=== PATIENT | male | born 1985 | race Caucasian/White ===

== ENCOUNTER 2020-07-18 16:37 | Emergency (ER) | payer BC, SELFPAY ==
[2020-07-18 16:50] VITALS: BP 137/88; PULSE 98; RESP 18; TEMP 36.9; O2SAT 98; BMI 22.9
--- NOTE | 2020-07-18 16:59 | HMH.EDUTC ---
[facility] [place] Clinical Impression: Viral syndrome Disposition: Home, Self-Care Condition on Discharge: Good Instructions: DI for Viral Syndrome, DI for Fever (Symptom) -- Adult, Preventing the Spread of Coronavirus Discharge Instructions Additional Instructions: *Monitor Temp, Over the counter Motrin or Tylenol as directed/as needed Tylenol every 4 hours and Motrin every 6 hours (as long as your family doctor has told you that you can take it) for fever or pain. and straight to ER if unable to lower temp less than 101.0 after medication given *Warm salt water gargles may help to soothe the throat *Throat Lozenges *Warm fluids like tea with honey may help to soothe the throat *Sleep elevated *Humidifier/Vaporizer *Flonase 2 sprays in each nostril daily but be aware that it may take 2-3 days before you notice improvement *Bromfed may cause drowsiness. Know how it effects you (your child) before driving, caring for small child, or sending your child to school. Not other antihistamines/allergy medications while taking bromfed Follow up IMMEDIATELY for new or worsening symptoms or no Noticeable improvement over the next 48-72 hours. 911 for difficulty breathing or swallowing You was tested for today for COVID19 your test result should be back in the next 24-48 hours, you may call to the [facility] later today or tomorrow to see if your test results are back and the result [phone] [facility] hours are 9am-9pm You was given a handout with instructions for Self Quarantine and Self isolation for while you wait on test results and what to do if they are positive If you are positive the Health Dept will be contacting you also Prescriptions: Brompheniramine/Pseudoephed/Dm [Bromfed Dm Cough Syrup] 5 - 10 ml PO Q46H PRN #150 ml PRN Reason: Cough Transmission Status: Received by [id number] Fluticasone Propionate [Flonase 50mcg nasal spray 16gm] 1 spr NS DAILY #1 bottle Transmission Status: Received by [id number] Referrals: PCP,No [Primary Care Provider] - As needed Forms: Work/School Release Time of Disposition: 17:14 Medical Decision Making - Parish Inquiry Pt receiving controlled substance: No Parish was queried for this patient: No Vital Signs: 07/18/20 16:50 07/18/20 17:19 Temperature 98.4 F 98.4 F Temperature Source Oral Oral Pulse Rate 98 H Pulse Rate [Radial] 98 H Respiratory Rate 18 18 Blood Pressure 137/88 Blood Pressure [Right Arm] 137/88 Blood Pressure Mean [Right Arm] 104 Blood Pressure Source Automatic Cuff Blood Pressure Source [Right Arm] Automatic Cuff Blood Pressure Position Sitting Blood Pressure Position [Right Arm] Sitting 02 Sat by Pulse Oximetry 98 Oxygen Delivery Method Room Air Room Air - Lab Data Lab Results 07/18/20 17:02: Influenza Type A Ag Negative, Influenza Type B Ag Negative Orders (Tests/Meds): ORDERS Category Date Time Status Covid-19 Nasal PCR ([facility]) Routine Lab 07/18/20 16:55 Received [facility] [place] - General Stated complaint: Wnts Covid test Time Seen by Provider: 07/18/20 16:59 Mode of Arrival: Ambulatory Source of Information: Patient Limitations: No Limitations Description of Symptoms (Recalled from Triage Doc. 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
[2020-07-18 17:09] LABS: UTC Influenza A Antigen Negative (Negative)
[2020-07-18 17:10] LABS: UTC Influenza B Antigen Negative (Negative)
[2020-07-18 17:19] VITALS: BP 137/88; PULSE 98; RESP 18; TEMP 36.9; O2SAT 98
--- NOTE | 2020-07-19 04:40 | PC.NURSE ---
Positive COVID results reported.
== END 2020-07-18 17:20 | disposition home or self-care (01) ==
PROVIDERS: Emergency Provider Nurse Practitioner
DX: U07.1 COVID-19 (principal); Z88.0 Allergy status to penicillin
CPT/HCPCS: 87804; 99201; U0003

== ENCOUNTER → 2020-10-19 12:38 | Outpatient (CLI) | payer BC, SELFPAY ==
[2020-10-19 13:34] LABS: Creatinine,Urine Random 50 mg/dL (Not Estab.)
== END ==
PROVIDERS: Visit Provider Internal Medicine Nephrology
DX: Z52.4 Kidney donor (principal)
CPT/HCPCS: 82570; 84155

== ENCOUNTER 2021-07-18 09:46 | Emergency (ER) | payer BC, SELFPAY ==
[2021-07-18 10:00] VITALS: BMI 23.6
--- NOTE | 2021-07-18 10:00 | XR_ITS ---
PROCEDURE: XR HAND RT 2V CLINICAL INDICATION: dog bite COMPARISON: No exams were available for comparison FINDINGS: Suspect old fracture of the distal aspect of the 5th metacarpal with mild angulation deformity and cortical thickening. There is a small radiopaque foreign body measuring 4 x 1 mm within the subcutaneous tissues between the 1st and 2nd fingers distally. There is a faint linear density at the tip the distal phalanx of the thumb small bone island involves the distal aspect of the ulna. The joint spaces are well-preserved. No significant degenerative/arthritic changes. No erosive changes evident. Other findings:None. IMPRESSION: Radiopaque foreign body. Faint linear density at the tuft of the distal phalanx of the thumb which could be due to small avulsion injury. Please correlate as the patient's area of injury. Dictated by: Ben Valdivia MD 07/18/2021 12:32 Ben Valdivia MD in [place] 07/18/2021 12:32
[2021-07-18 10:01] VITALS: BP 134/91; PULSE 82; RESP 18; TEMP 36.8; O2SAT 100; BMI 23.6
--- NOTE | 2021-07-18 10:16 | HMH.EDUTC ---
[facility] [place] Disposition Clinical Impression: Open wound of right thumb due to dog bite Dog bite of left hand Qualifiers: Encounter type: initial encounter Qualified Code(s): S61.452A - Open bite of left hand, initial encounter Injury of nail bed of right thumb Qualifiers: Encounter type: initial encounter Qualified Code(s): S69.91XA - Unspecified injury of right wrist, hand and finger(s), initial encounter Disposition: Home, Self-Care Condition on Discharge: Good Instructions: DI for Nail Bed Injury, DI for Dog Bite Additional Instructions: Keep the wounds clean and dry. Follow up with your regular doctor. Take the antibiotics as directed and apply the topical antibiotics as directed. Make sure you stay in contact with the health department regarding the health of the dog. Watch the puncture wounds for signs of worsening infection, such as worsening redness, drainage, swelling, etc. GO TO THE ER FOR ANY WORSENING SYMPTOMS Prescriptions: Ibuprofen [Ibuprofen 600mg Tablet] 600 mg PO Q6HP PRN #30 tab PRN Reason: Mild Pain Transmission Status: Received by [facility] Mupirocin [Bactroban 2% Ointment 22gm tube] 1 applicatio TP TID 7 Days #1 gm Transmission Status: Received by [facility] clindamycin HCL [Cleocin HCl] 300 mg PO TID 10 Days #30 cap Transmission Status: Received by [facility] Doxycycline Monohydrate [Doxycycline [place] 100mg Tab] 100 mg PO Q12 10 Days #20 tab Transmission Status: Received by [facility] Referrals: Petra Smith [Primary Care Provider] - Dani Santos MD [Staff Physician] - Time of Disposition: 11:19 Medical Decision Making - Medical Records Medical records reviewed: No: I reviewed the patient's medical records. - Parish Inquiry Pt receiving controlled substance: No Vital Signs: 07/18/21 10:01 07/18/21 11:37 Temperature 98.2 F 98.2 F Temperature Source Oral Oral Pulse Rate 82 Pulse Rate [Left Radial] 82 Respiratory Rate 18 18 Blood Pressure 134/91 H Blood Pressure [Right Arm] 134/91 H Blood Pressure Mean [Right Arm] 105 Blood Pressure Source [Right Arm] Automatic Cuff Blood Pressure Position [Right Arm] Sitting 02 Sat by Pulse Oximetry 100 Oxygen Delivery Method Room Air - Radiology Data #1 Image(s): Hand Image Reviewed: Yes I reviewed the patient's radiology image, Yes I have reviewed radiologist's interpretation Preliminary Findings: Abnormal PROCEDURE: XR HAND RT 2V CLINICAL INDICATION: dog bite COMPARISON: No exams were available for comparison FINDINGS: Suspect old fracture of the distal aspect of the 5th metacarpal with mild angulation deformity and cortical thickening. There is a small radiopaque foreign body measuring 4 x 1 mm within the subcutaneous tissues between the 1st and 2nd fingers distally. There is a faint linear density at the tip the distal phalanx of the thumb small bone island involves the distal aspect of the ulna. The joint spaces are well-preserved. No significant degenerative/arthritic changes. No erosive changes evident. Other findings:None. IMPRESSION: Radiopaque foreign body. Faint linear density at the tuft of the distal phalanx of the thumb which could be due to small avulsion injury. Please correlate as the patient's area of injury. Dictated by: Ben Valdivia MD 07/18/2021 12:32 Ben Valdivia MD in [place] 07/18/2021 12:32 Medical Decision Narrative: The wounds were cleaned well. Paper work was sent to the health department. [facility] [place] HPI - General Stated complaint: [id number] dog bite right thumb Time Seen by Provider: 07/18/21 10:31 Mode of Arrival: Ambulatory Source of Information: Patient Limitations: No Limitations Description of Symptoms (Recalled from Triage Doc. by RN): pt to [facility] per pvt car. pt states he was bit by a dog this morning. pt c/o pain in his right thumb. pt states he is utd on his tetanus shot. AYE
[2021-07-18 11:37] VITALS: BP 134/91; PULSE 82; RESP 18; TEMP 36.8; O2SAT 100
== END 2021-07-18 11:39 | disposition home or self-care (01) ==
PROVIDERS: Emergency Provider Nurse Practitioner Family; PCP Family Medicine
DX: S61.452A Open bite of left hand, initial encounter (principal); S69.91XA Unspecified injury of right wrist, hand and finger(s), initial encounter; W54.0XXA Bitten by dog, initial encounter; Y92.019 Unspecified place in single-family (private) house as the place of occurrence of the external cause; Z88.0 Allergy status to penicillin; Z88.5 Allergy status to narcotic agent
CPT/HCPCS: 73120; 99202; G0463

== ENCOUNTER 2024-09-12 03:07 | Emergency (ER) | payer BC, SELFPAY ==
[2024-09-12 03:09] VITALS: BP 173/98; PULSE 78; RESP 16; TEMP 36.6; O2SAT 99; BMI 23.7
[2024-09-12 03:23] LABS: Microscopic, Urine URINE MICROSCOPIC (MICROSCOPIC)
[2024-09-12 03:25] LABS: Appearance,Urine CLEAR (Clear); Blood, Urine 3+ (Negative); Color,Urine YELLOW (Yellow); Glucose,Urine (UA) Negative (Negative); Ketones,Urine Negative (Negative); Leukocyte Esterase,Urine 2+ (Negative); Nitrate,Urine POSITIVE (Negative); Protein,Urine 2+ (Negative); Specific Gravity, Urine 1.025 (1.005-1.030); Urobilinogen,Urine 0.2 EU/dl (0.2)
--- NOTE | 2024-09-12 03:27 | PC.NURSE ---
bladder post void scan 3ml
[2024-09-12 03:34] LABS: Basophils # 0.1 K/mm3 (0-0.2); Basophils % 0.4 % (0.1-2.0); Eosinophils # 0.3 K/mm3 (0.0-0.4); Hematocrit 42.2 % (42.0-52.0); Hemoglobin 13.9 g/dL (14.1-18.0); Lymphocytes # 1.8 K/mm3 (0.7-4.5); Lymphocytes % 13.4 % (10-50); Mean Corpuscular HGB Conc 32.9 g/dL (31.8-35.4); Mean Corpuscular Volume 82.1 fl (80-94); Mean Platelet Volume 11.1 fl (7.4-10.4); Monocytes # 1.1 K/mm3 (0.1-1.0); Monocytes % 8.3 % (1.7-9.3); Neutrophils # 9.9 K/mm3 (1.8-7.8); Neutrophils % 75.6 % (37.0-80.0); Platelet Count 248 K/mm3 (142-424); Red Blood Count 5.14 M/mm3 (4.60-6.20); Red Cell Distribution Width 12.3 % (11.5-17.5); White Blood Count 13.1 K/mm3 (4.8-10.8)
[2024-09-12 03:35] LABS: Chloride 101 mmol/L (98-107)
[2024-09-12 03:36] LABS: Albumin Level 4.7 g/dl (3.5-5.0); Potassium 3.8 mmoL/L (3.5-5.1); Sodium 134 mmol/L (136-145)
[2024-09-12 03:38] LABS: Blood Urea Nitrogen 20 mg/dl (9-20); Creatinine Clearance Estimated 79 mL/min (50-200); Estimated Glomerular Filt Rate 57 ml/min (>60); GFR (African American) 69 ML/MIN (>60)
[2024-09-12 03:39] LABS: Alanine Aminotransferase 48 U/L (12-78); Albumin/Globulin Ratio 1.8 (1.1-1.8); Alkaline Phosphatase 69 U/L (38-126); Anion Gap 10.8 mEq/L (5-15); Aspartate Amino Transferase 42 U/L (17-59); Bilirubin,Total 0.5 mg/dl (0.2-1.3); Calcium 9.5 mg/dl (8.4-10.2); Carbon Dioxide 26 mmol/L (22.0-30.0); Globulin 2.6 g/dL (1.3-3.2); Glucose 95 mg/dl (74-100); Total Protein,Serum 7.3 g/dl (6.3-8.2)
[2024-09-12 03:42] LABS: Bilirubin,Urine 1+ (Negative)
[2024-09-12 03:50] LABS: RBC,Urine TNTC #/hpf (0-3); WBC,Urine TNTC #/hpf (0-3)
[2024-09-12 03:51] LABS: Bacteria,Urine 2+ /lpf; Mucus,Urine Trace /lpf
--- NOTE | 2024-09-12 04:05 | CT_ITS ---
PROCEDURE INFORMATION: Exam: CT Abdomen And Pelvis Without Contrast Exam date and time: 09/12/2024 4:21 AM Age: 39 years old Clinical indication: Other: New hematuria, prior kidney donor TECHNIQUE: Imaging protocol: Computed tomography of the abdomen and pelvis without contrast. Radiation optimization: All CT scans at this facility use at least one of these dose optimization techniques: automated exposure control; mA and/or kV adjustment per patient size (includes targeted exams where dose is matched to clinical indication); or iterative reconstruction. COMPARISON: No relevant prior studies available. FINDINGS: Liver: Normal. No mass. Gallbladder and biliary ducts: Normal. No calcified stones. No ductal dilation. Pancreas: Normal. No ductal dilation. Spleen: Normal. No splenomegaly. Adrenal glands: Normal. No mass. 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 There is no hydronephrosis or hydroureter. Stomach and bowel: Unremarkable. No obstruction. No mucosal thickening. Appendix: No evidence of appendicitis. Intraperitoneal space: Unremarkable. No free air. No significant fluid collection. Retroperitoneal space: Surgical clips in the right retroperitoneum. Vasculature: Unremarkable. No abdominal aortic aneurysm. Lymph nodes: Unremarkable. No enlarged lymph nodes. Urinary bladder: Unremarkable as visualized. Reproductive: Unremarkable as visualized. Bones/joints: Unremarkable. No acute fracture. Soft tissues: Unremarkable. IMPRESSION: No acute intra-abdominal abnormality. No obvious source for hematuria. Right nephrectomy.
--- NOTE | 2024-09-12 04:17 | PC.NURSE ---
Pt to Ct scan via wheelchair
--- NOTE | 2024-09-12 04:44 | ED_ITS ---
Discharge Plan Disposition Patient Disposition: Home, Self-Care Prescriptions Prescriptions: New doxycycline hyclate 100 mg tablet 100 mg PO BID 7 Days Qty: 14 0RF sulfamethoxazole-trimethoprim 800-160 mg tablet 1 tab PO BID 7 Days Qty: 14 0RF No Action jouoibyogkjobdp-rreqqozew-[place] 118 ML syrup 5 - 10 ml PO Q46H PRN (Reason: Cough) Qty: 150 0RF fluticasone propionate 120 SPR/BOT bottle 1 spr NS DAILY Qty: 1 0RF Rx Instructions: each nostril daily doxycycline monohydrate 100 MG tablet 100 mg PO Q12 10 Days Qty: 20 0RF mupirocin 22 GM ointment 1 applicatio TP TID 7 Days Qty: 1 0RF clindamycin HCl 300 MG capsule 300 mg PO TID 10 Days Qty: 30 0RF ibuprofen 600 MG tablet 600 mg PO Q6HP PRN (Reason: Mild Pain) Qty: 30 0RF Referrals Follow up/Referrals: Provider,Referral, MD [Primary Care Provider] - See instructions Activity Restrictions/Add. Instructions Additional Instructions/Restrictions: Please take antibiotics as prescribed for treatment of urinary tract infection. Please follow-up with your primary care provider. Please return to the emergency department if you develop any new or worsening symptoms or become concerned for your health. Clinical Impressions Clinical Impression: Acute UTI, Acute hemorrhagic cystitis Instructions Patient Instructions: DI for Urinary Tract Infection (UTI) Print Language Print Language: Nepali Discharge ED Provider: Kumar Dwyer General Adult HPI General Chief complaint: Urogenital-Male Stated complaint: frequent urination, passing blood Time Seen by Provider: 09/12/24 03:13 Mode of Arrival: Ambulatory Source of Information: Patient Limitations: No Limitations Description of Symptoms (Recalled from ER Triage Doc. by RN): Patient noticed bloody urine around 00:30. Has gotten progressively darker. States he is also having frequency. History of Present Illness HPI narrative: 39-year-old male with history of prior right kidney donation presents for urinary frequency and now berny hematuria. It started earlier today and has been getting progressively worse. He started noting blood in his urine a couple hours ago and it is getting darker. He denies any fevers, denies any dysuria, denies any urethral discharge. He reports he is monogamous and is not concern for STD. Denies any insertive anal intercourse. Denies prior STD or UTI. Related Data Previous Rx's ?Medication ?Instructions ?Recorded qybihyvtdrjdprm-hytbvmiwltmjwyu-[place] 5 - 10 ml PO Q46H PRN Cough #150 mL 07/18/20 2 mg-30 mg-10 mg/5 mL oral syrup fluticasone propionate 50 1 spr NS DAILY ##1 07/18/20 mcg/actuation nasal spray,suspension clindamycin HCl 300 mg capsule 300 mg PO TID 10 days #30 caps 07/18/21 doxycycline monohydrate 100 mg 100 mg PO Q12 10 days #20 tabs 07/18/21 tablet ibuprofen 600 mg tablet 600 mg PO Q6HP PRN Mild Pain #30 07/18/21 tabs mupirocin 2 % topical ointment 1 applicatio TP TID 7 days ##1 07/18/21 doxycycline hyclate 100 mg tablet 100 mg PO BID 7 days #14 tabs 09/12/24 sulfamethoxazole 800 1 tab PO BID 7 days #14 tabs 09/12/24 mg-trimethoprim 160 mg tablet Allergies Allergy/AdvReac Type Severity Reaction Status Date / Time CODEINE Allergy Unknown NA-NAUSEA/V Uncoded 08/17/17 14:47 OMITING PCN (PENICILLIN) Allergy Unknown DIFF Uncoded 08/17/17 14:47 BREATHING PFSH PFSH Disclaimer: The information contained in this section may have been updated after the patient was seen, as this information can be updated by other users. Social History Smoking Status: Never smoker second hand exposure: No alcohol intake: never current occupational status: other Travel in the last 8 weeks: None Have you lived/traveled outside [place] in past 30 days?: No Contact w/someone who lives/traveled outside [place] past 30 days?: No Exposure to someone with infectious disease in past 14 days?: No Do you have a fever (greater than 100.4 F or 38 C)?: No Have you tested positive for COVID-19: No Exposed to someone with COVID-19 in past 14 days?: No Do you have a sore throat?: No Do you have a cough?: No Do you have any weakness?: No Do you have any diarrhea?: No Are you experiencing any unusual bleeding?: Yes Do you have any muscle aches/pain?: No Do you have any abdominal pain?: No Are you experiencing loss of taste or smell?: No ROS Obtained: Yes All systems reviewed & no additional complaints except as documented Physical Exam General General appearance: alert and in no apparent distress Head Head exam: atraumatic and normocephalic Eye Eye exam: Present normal appearance, PERRL and EOMI ENT ENT exam: Present normal oropharynx and normal external ear exam Neck Neck exam: Present normal inspection and full ROM Chest Chest inspection: Present normal inspection and symmetric chest wall rise; Absent tenderness Respiratory Respiratory exam: Present normal lung sounds bilaterally; Absent respiratory distress Cardiovascular Cardiovascular exam: Present regular rate and normal rhythm Abdominal Exam Abdominal exam: Present soft; Absent distention, tenderness or guarding Extremities Exam Extremities exam: Present normal inspection; Absent edema or joint swelling Back Exam Back exam: Present normal inspection; Absent tenderness Neurological Exam Neurological exam: Present alert and oriented X3; Absent motor sensory deficit Psychiatric Psychiatric exam: Present normal affect and normal mood Skin Skin exam: Present warm, dry and normal color Lymphatic Lymphatic Findings: no adenopathy Medical Decision Making Medical Records Medical records reviewed: Yes I reviewed the patient's medical records. Screening: Per USPSTF and CDC recommendations, given the prevalence of disease in our region, it is our hospital?s policy to screen for HIV and viral Hepatitis for all patients aged 18 and over and those with ongoing risk factors. Parish Inquiry Pt receiving controlled substance: No Parish was queried for this patient: No Vital Signs: 09/12/24 03:09 Temperature 97.9 F Temperature Source Oral Pulse Rate [Right Radial] 78 Respiratory Rate 16 Blood Pressure [Right Arm] 173/98 H Blood Pressure Mean [Right Arm] 123 Blood Pressure Source [Right Arm] Automatic Cuff Blood Pressure Position [Right Arm] Supine 02 Sat by Pulse Oximetry 99 Oxygen Delivery Method Room Air Lab Data Lab results reviewed: Yes I reviewed the patient's lab results. Lab Results 09/12/24 03:15: Urine Color Yellow, Urine Appearance Clear, Urine pH 6.0, Ur Specific [place] 1.025, Urine Protein 2+ A, Urine Glucose (UA) Negative, Urine Ketones Negative, Urine Blood 3+ A, Urine Nitrate Positive A, Urine Bilirubin 1+ A, Urine Urobilinogen 0.2, Ur Leukocyte Esterase 2+ A, Urine RBC Tntc, Urine WBC Tntc, Ur Squamous Epith Cells 3-5, Urine Bacteria 2+, Urine Mucus Trace 09/12/24 03:25: WBC 13.1 H, RBC 5.14, Hgb 13.9 L, Hct 42.2, MCV 82.1, MCH 27.0, MCHC 32.9, RDW 12.3, Plt Count 248, MPV 11.1 H, Neut % (Auto) 75.6, Lymph % (Auto) 13.4, [place] % (Auto) 8.3, Eos % (Auto) 2.0, Baso % (Auto) 0.4, Neut # (Auto) 9.9 H, Lymph # (Auto) 1.8, [place] # (Auto) 1.1 H, Eos # (Auto) 0.3, Baso # (Auto) 0.1, Sodium 134 L, Potassium 3.8, Chloride 101, Carbon Dioxide 26, Anion Gap 10.8, BUN 20, Creatinine 1.40 H, Estimated Creat Clear 79, Estimated GFR 57 L, Est GFR ( Amer) 69, Glucose 95, Calcium 9.5, Total Bilirubin 0.5, AST 42, ALT 48, Alkaline Phosphatase 69, Total Protein 7.3, Albumin 4.7, Globulin 2.6, Albumin/Globulin Ratio 1.8 09/12/24 03:25 09/12/24 03:25 Orders (Tests/Meds): ED MEDICATIONS Generic Name Dose Route Start Last Admin Trade Name [place] PRN Reason Stop Dose Admin Doxycycline Hyclate 100 mg 09/12/24 04:41 09/12/24 04:46 Doxycycline Hycl 100 Mg Tablet PO 09/12/24 04:42 100 mg ONCE ONE Administration Ceftriaxone Sodium 1 gm/ 50 mls @ 100 mls/hr 09/12/24 04:40 09/12/24 04:46 Sodium Chloride IV 09/12/24 05:09 100 mls/hr ONCE ONE Administration Metronidazole 2,000 mg 09/12/24 04:44 09/12/24 04:48 Metronidazole 500 Mg Tablet PO 09/12/24 04:45 2,000 mg ONCE ONE Administration ORDERS Category Date Time Status CT abdomen pelvis wo con Stat Cat Scan 09/12/24 04:05 Completed CBC w/Auto Diff [Complete Blood Count Auto Diff] Stat Lab 09/12/24 03:25 Completed CMP [Comprehensive Metabolic Panel] Stat Lab 09/12/24 03:25 Completed UA [Urinalysis and Microscopic] Stat Lab 09/12/24 03:15 Completed Urine Culture Stat Micro 09/12/24 03:15 Received Medical Decision Narrative: 39-year-old male with history of prior right kidney donation presents with worsening urinary frequency and berny hematuria. History was obtained via interactive discussion with patient. On arrival, patient is [afebrile, hemodynamically stable, satting appropriately, alert, oriented x4, GCS 15], moving all extremities spontaneously. Full physical exam performed and significant for no tenderness, no significant suprapubic tenderness. Differential includes but is not limited to UTI, hemorrhagic cystitis, pyelonephritis, STD, kidney stone, glomerulonephritis, urine gonorrhea chlamydia was sent. Workup initiated including UA CBC CMP CT abdomen pelvis Noncon. On re-evaluation, patient [remains afebrile, HD stable.] Continues to have frequent urination. Laboratory workup independently interpreted by me and significant for urinalysis that appears consistent with UTI, TNTC RBCs, TNTC WBCs, 2+ bacteria, positive nitrate. Also has 2+ proteinuria. Renal function is 1.4, this is patient's baseline creatinine. No significant electrolyte derangement. Mild leukocytosis at 13.. Imaging independently interpreted by me and significant for no evidence of kidney stone or hydronephrosis, decompressed bladder. See radiology read for full review of final results. Given patient history, exam and workup, patient's presentation most likely represents UTI with hemorrhagic cystitis. Could also represent STI, though this seems less likely. Patient was given empiric therapy for STD and UTI and discharged in stable condition with instructions regarding symptomatic care. He was encouraged to follow-up with his PCP for recheck of his renal function and urinalysis. Procedures Risk/Benefits of Procedure(s) Were Explained: Yes Critical Care Critical Care Time Critical Care Time: No
[2024-09-12] MEDS: DOXYCYCLINE HYCL 100 MG TABLET PO (04:46)
[2024-09-12] MEDS: CEFTRIAXONE 1 GM 1 GM in 0.9 % SODIUM CHLORIDE 50 ML IV (04:46)
[2024-09-12] MEDS: metroNIDAZOLE 500 MG TABLET 2000 MG PO (04:48)
[2024-09-12 05:04] VITALS: BP 132/74; PULSE 74; RESP 16; TEMP 36.6
--- NOTE | 2024-09-13 13:06 | PC.NURSE ---
URINE CULTURE DISCUSSED WITH DR KNIGHT, NO NEW ORDER
[2024-09-14 06:11] LABS: Neisseria gonorrhoeae, NAA Negative (Negative)
== END 2024-09-12 05:17 | disposition home or self-care (01) ==
PROVIDERS: Emergency Provider Emergency Medicine
DX: N30.01 Acute cystitis with hematuria (principal); R35.0 Frequency of micturition
CPT/HCPCS: 74176; 80053; 81001; 85025; 87086; 87088; 87186; 87491; 87591; 96365; 99284; J0696

== ENCOUNTER 2025-04-22 14:10 | Outpatient (CLI) | payer BC, SELFPAY ==
--- OUTSIDE RECORDS SUMMARY | 2025-03-12 09:00 | XMS_ITS | Encounter Summary ---
Author Organization [facility] Address [address] [id number] Care Team Providers Care Cork Insulation Setter Name Role Phone Petra Garza MD Primary Care Provider [phone] Reason for Visit * Reason Comments Follow-up Encounter Details Date Type Department Care Team (Late st Contact Info) Description 03/12/2025 9:00 AM EDT Office Visit [address] [address] Petra Garza MD [address] [place] [address] Donor of kidney for transplant (Primary Dx); Gastroesophageal reflux disease, unspecified whether esophagitis present; Allergic rhinitis, unspecified seasonality, unspecified trigger; History of UTI; History of hematuria; Other male erectile dysfunction Social History Tobacco Use Types Packs/Day Years Used Date Smoking Tobacco: Former Cigarettes 1 10.7 0 08/30/2001 - 05/28/2012 Passive Smoke Exposure: Never Smokeless Tobacco: Never Tobacco Cessation:Counseling Given: Not Answered Alcohol Use Standard Drinks/Week Comments Not Currently 0 (1 standard drink = 0.6 oz pur e alcohol) Humiliation, Afraid, Rape, and Kick questionnair e Answer Date Recorded Within the last year, have y ou been afraid of your partner or ex-partner? No 03/12/2024 Within the last year, have y ou been humiliated or emotionally abused in other ways by your partner or ex-partner? No Within the last year, have y ou been kicked, hit, slapped, or otherwise physically hurt by your partner or ex-partner? No 03/12/2024 Within the last year, have y ou been raped or forced to have any kind of sexual activity by your partner or ex-partner? No 03/12/2024 PHQ-2 Answer Date Recorded Patient Health Questionnaire-2 Score 0 09/20/2024 Hunger Vital Sign Answer Date Recorded Within the past 12 months, y ou worried that your food would run out before you got the money to buy more. Patient declined Within the past 12 months, t he food you bought just didn't last and you didn't have money to get more. Patient declined PRAPARE - Transportation Answer Date Re corded In the past 12 months, has l ack of transportation kept you from medical appointments or from getting medications? No 08/30 In the past 12 months, has l ack of transportation kept you from meetings, work, or from getting things needed for daily living? No 09/15/2024 Housing Stability Vital Sign Answer Jacky e Recorded In the last 12 months, was t here a time when you were not able to pay the mortgage or rent on time? No 03/12/2024 Number of Places Lived in the Last Year Not on f ile 03/12/2024 In the last 12 months, was t here a time when you did not have a steady place to sleep or slept in a fpc (including now)? No 03/12/2024 PHQ-9 Answer Date Recorded Patient Health Questionnaire-9 Score 0 09/20/2024 Housing Stability Vital Sign Answer Jacky e Recorded In the last 12 months, was t here a time when you were not able to pay the mortgage or rent on time? No 09/15/2024 Number of Times Moved in the Last Year Not on fi le 09/15/2024 At any time in the past 12 m [facility], were you homeless or living in a fpc (including now)? No 09/15/2024 Utilities Answer Date Recorded In the past 12 months has th e electric, gas, oil, or water company threatened to shut off services in your home? No 09/15/2024 PHQ-2A Answer Date Recorded Patient Health Questionnaire-2 Score 0 03/15/2023 Sex and Gender Information Value Date Recorded Sex Assigned at Not on file Legal Sex Male 6:14 PM EDT Gender Identity Not on file Sexual Orientation Not on file documented as of this encounter Last Filed Vital Signs Vital Sign Reading Time Taken Comments Blood Pressure 120/86 03/12/2025 9:07 AM EDT Pulse 66 03/12/2025 9:07 AM EDT Temperature 36.7 C (98 F) 03/12/2025 9:07 AM EDT Respiratory Rate 16 03/12/2025 9:07 AM EDT Oxygen Saturation 99% 03/12/2025 9:07 AM EDT Inhaled Oxygen Concentration - - Weight 80 kg (176 lb 5.9 oz) 03/12/2025 9:07 AM EDT Height 177.8 cm (5' 10 ) 03/12/2025 9:07 AM EDT Body Mass Index 25.31 03/12/2025 9:07 AM EDT documented in this encounter Functional Status * Calculated C-SSRS Risk Score (Lifetime/Recent) Answer Date of Assessment Author No Risk Indicated 03/12/2025 9:10 AM EDT Ivana Christina * Question Answer Date of Assessment Author 1. Wish to be (Past 1 Month) No 025 9:10 AM EDT Ivana Christina 2. Non-Specific Active Suici joaquín Thoughts (Past 1 Month) No 03/12/2025 9:10 AM EDT Ivana Christina 6. Suicidal Behavior (Lifetime) No 9:10 AM EDT Ivana Christina documented as of this encounter Miscellaneous Notes * Progress Notes - Petra Garza MD - 03/12/2025 9:00 AM EDT Subjective Patient ID: Barrett Cordon is a 39 y.o. male. Chief Complaint Patient presents with Follow-up HPI Hx of kidney donation a few years ago. Here for monitoring. Baseline cr 1.45. No Recent UTI symptoms. Allergies: on xyzal and PRN flonase. GERD: controlled on pepcid 40mg BID. ED: slow to get erection but then no issues. Wondering if testosterone is the cause. HM: CRCS due 45. Current Medications[1] Pertinent review of systems has been performed and negative except as noted in HPI. Pertinent areas of the chart reviewed include social, family, past medical and surgical history. Objective Physical Exam Vitals and nursing note reviewed. Constitutional: General: He is not in acute distress. Appearance: Normal appearance. He is well-developed. He is not toxic-appearing. HENT: Head: Normocephalic and atraumatic. Nose: Nose normal. Eyes: Conjunctiva/sclera: Conjunctivae normal. Cardiovascular: Rate and Rhythm: Normal rate. Pulmonary: Effort: Pulmonary effort is normal. Skin: General: Skin is warm and dry. Neurological: Mental Status: He is alert and oriented to person, place, and time. Gait: Gait normal. Psychiatric: Mood and Affect: Mood normal. Behavior: Behavior normal. Thought Content: Thought content normal. Assessment/Plan Diagnoses and all orders for this visit: Donor of kidney for transplant - Basic Metabolic Panel, Plasma - Urinalysis with reflex microscopic (Culture NOT Included) Gastroesophageal reflux disease, unspecified whether esophagitis present - famotidine (Pepcid) 40 MG tablet; Take 1 tablet by mouth 2 times a day. Allergic rhinitis, unspecified seasonality, unspecified trigger - levocetirizine (Xyzal) 5 MG tablet; Take 1 tablet by mouth every evening. - fluticasone (Flonase) 50 MCG/ACT nasal spray; Administer 2 sprays into each nostril daily. Shake gently. Before first use, prime pump. After use, clean tip and replace cap. History of UTI - Urinalysis with reflex microscopic (Culture NOT Included) History of hematuria - Urinalysis with reflex microscopic (Culture NOT Included) Other male erectile dysfunction - Testosterone Total Labs today for monitoring/diagnosis. Follow up in about 6 months (around 09/12/2025). Note to patient: The Century Cures Act makes medical notes like these available to patients inthe interest of transparency. However, be advised this is a medical document. It is intended as peer to peer communication. It is written in medical language and may contain abbreviations or verbiagethat are unfamiliar. It may appear blunt or direct. Medical documents are intended to carry relevant information, facts as evident, and the clinical opinion of the practitioner. [1] Current Outpatient Medications: famotidine (Pepcid) 40 MG tablet, Take 1 tablet by mouth 2 times a day., Disp: 180 tablet, Rfl: 3 fluticasone (Flonase) 50 MCG/ACT nasal spray, Administer 2 sprays into each nostril daily. Shake gently. Before first use, prime pump. After use, clean tip and replace cap., Disp: 16 g, Rfl: 11 levocetirizine (Xyzal) 5 MG tablet, Take 1 tablet by mouth every evening., Disp: 90 tablet, Rfl: 2 documented in this encounter Plan of Treatment Upcoming Encounters Date Type Department Care Team (Late st Contact Info) Description 08/27/2025 10:00 AM EST Office Visit [facility] [address] [place] [address] Petra Garza MD [address] [place] [address] documented as of this encounter Procedures Procedure Name Priority Date/Time Associated Diagnosis Comments TESTOSTERONE, TOTAL Routine 03/12/2025 9 :26 AM EDT Other male erectile dysfunction URINALYSIS WITH REFLEX MICROSCOPIC Routine 03/12/2025 9:26 AM EDT Donor of kidney for transplant History of UTI History of hematuria BASIC METABOLIC PANEL, PLASMA Routine 03/12/2025 9:26 AM EDT Donor of kidney for transplant documented in this encounter Results * Testosterone Total (03/12/2025 9:26 AM EDT) Testosterone Total 573.0 264.0 - 916.0 ng/dL 03/13/2025 2:20 PM EDT [facility] Blood Venous blood specimen / Unknown Venipuncture / Unknown 03/12/2025 9:26 AM EDT 03/12/2025 9:29 AM EDT Narrative [facility] - 03/13/2025 2:20 PM EDT Test performed by LC-MS/MS at the [facility]. This test was developed and its performance characteristics determined by [facility]. It has not been cleared or approved by the FDA. The laboratory is regulated under CLIA as qualified to perform high-complexity testing. This test is used for clinical purposes. us Petra Garza MD LAB BLOOD ORDERABLES Final Res ult [facility] [address] [place] [address] * Urinalysis with reflex microscopic (Culture NOT Included) (03/12/2025 9:26 AM EDT) Color, Urine Yellow LAB URINALYSIS - AUTOMATED METHOD 03/12/2025 1:07 PM EDT [facility] Clarity, Urine Clear LAB URINALYSIS - AUTOMATED METHOD 03/12/2025 1:07 PM EDT [facility] Spec [place], Urine 1.007 1.005 - 1.030 LAB URINALYSIS - AUTOMATED METHOD 03/12/2025 1:07 PM EDT [facility] pH, Urine 6.5 5.0 - 8.0 LAB URINALYSIS - AUTOMATED METHOD 03/12/2025 1:07 PM EDT [facility] Protein, Urine Negative Negative mg/dL LAB URINALYSIS - AUTOMATED METHOD 03/12/2025 1:07 PM EDT [facility] Glucose, Urine Negative Negative mg/dL LAB URINALYSIS - AUTOMATED METHOD 03/12/2025 1:07 PM EDT [facility] Ketones, Urine Negative Negative mg/dL LAB URINALYSIS - AUTOMATED METHOD 03/12/2025 1:07 PM EDT [facility] Blood, Urine Negative Negative LAB URINALYSIS - AUTOMATED METHOD 03/12/2025 1:07 PM EDT [facility] Bilirubin, Urine Negative Negative LAB URINALYSIS - AUTOMATED METHOD 03/12/2025 1:07 PM EDT [facility] Urobilinogen, Urine 0.2 0.2 to 1.0 mg/dL LAB URINALYSIS - AUTOMATED METHOD 03/12/2025 1:07 PM EDT [facility] Leukocytes, Urine Negative Negative LAB URINALYSIS - AUTOMATED METHOD 03/12/2025 1:07 PM EDT [facility] Nitrite, Urine Negative Negative LAB URINALYSIS - AUTOMATED METHOD 03/12/2025 1:07 PM EDT [facility] Urine Urine specimen obtained by clean catch procedure / Unknown Non-blood Collection / Unknown 03/12/2025 9:26 AM EDT 03/12/2025 9:29 AM EDT us Petra Garza MD LAB URINE ORDERABLES Final Res ult [facility] [address] [place] [address] * (ABNORMAL) Basic Metabolic Panel, Plasma (03/12/2025 9:26 AM EDT) Glucose, Plasma 87 74 - 99 mg/dL 03/12/2025 1:32 PM EDT [facility] BUN, Plasma 12 7 - 21 mg/dL 03/12/2025 1:32 PM EDT [facility] Creatinine, Plasma 1.46(H) 0.70 - 1.20 mg/dL 03/12/2025 1:32 PM EDT [facility] BUN/Creatinine Ratio 8 03/12/2025 1:32 PM EDT [facility] Sodium, Plasma 138 136 - 145 mmol/L 03/12/2025 1:32 PM EDT [facility] Potassium, Plasma 4.2 3.6 - 4.9 mmol/L 03/12/2025 1:32 PM EDT [facility] Chloride, Plasma 101 97 - 107 mmol/L 03/12/2025 1:32 PM EDT [facility] CO2, Plasma 26 22 - 29 mmol/L 03/12/2025 1:32 PM EDT [facility] Anion Gap 11 6 - 16 mmol/L 03/12/2025 1:32 PM EDT [facility] Total Calcium, Plasma 9.6 8.9 - 10.2 mg/dL 03/12/2025 1:32 PM EDT [facility] eGFRcr 63.1 mL/min/1.7 3m*2 03/12/2025 1:32 PM EDT [facility] Comment:Reported eGFRcr in m L/min/1.73m2 is based the CKD-EPI 2020 equation that does not use a race coefficient. Blood Venous blood specimen / Unknown Venipuncture / Unknown 03/12/2025 9:26 AM EDT 03/12/2025 9:29 AM EDT Petra Garza MD LAB BLOOD ORDERABLES Final Res ult [facility] [address] [place] [address] documented in this encounter Visit Diagnoses Diagnosis Donor of kidney for transplant- Primary Kidney donor Gastroesophageal reflux disease, unspecified whether esophagitis present Allergic rhinitis, unspecified seasonality, unspecified trigger History of UTI History of hematuria Personal history of other disorder of urinary system Other male erectile dysfunction documented in this encounter Additional Health Concerns Assessment Noted Time PHQ-9 Depression Total Score: 0 09/20/19 25 11:01 AM EST A Body Mass Index follow-up plan has been documented for the patient 03/12/2025 9:25 AM EDT documented as of this encounter Care Teams Cork Insulation Setter Relationship Specialty Start Date End Date Petra Garza MD [address] [place] [id number] PCP - General 01/10/21 documented as of this encounter
[2025-04-22 22:42] LABS: Lyme Ab IgM CIA ND
--- OUTSIDE RECORDS SUMMARY | 2025-04-23 12:55 | XMS_ITS | Clinical Summary ---
Author Organization [facility] Address [address] [place] [address] Phone [email or web address] Care Team Providers Care Information Security Architect Name Role Phone Provider, No Primary Care Provider Unavailabl e Allergies Active Allergy Reactions Criticality Noted Date Comments Codeine High 09/13/2018 Penicillins Anaphylaxis High 11/02/2017 Patient states this is inaccuate, does not have allergy, previosly historical diagnosis - noted 09/13/17 Medications No known medications Active Problems No known active problems Social History Tobacco Use Types Packs/Day Years Used Date Smoking Tobacco: Never Assessed Intimate Partner Violence Answer Date R ecorded Insults You Not on file 12/08/2020 Threatens You Not on file 12/08/2020 Screams at You Not on file 12/08/2020 Physically Hurt Not on file 12/08/2020 Intimate Partner Violence Score Not on file 12/08/2020 Stress Answer Date Recorded Stress in your Life Not on file 07/03/2024 Dealing with Stress 3 07/03/2024 Sex and Gender Information Value Date Recorded Sex Assigned at Not on file Legal Sex Male 8:14 AM CDT Gender Identity Not on file Sexual Orientation Not on file Last Filed Vital Signs Vital Sign Reading Time Taken Comments Blood Pressure 132/92 06/20/2024 8:49 PM EDT Pulse 81 06/20/2024 8:49 PM EDT Temperature 36.9 C (98.4 F) 06/20/2024 8:49 PM EDT Respiratory Rate 14 09/08/2023 10:53 PM EST Oxygen Saturation 98% 09/08/2023 10:53 PM EST Inhaled Oxygen Concentration - - Weight 77.1 kg (170 lb) 06/20/2024 8:49 PM EDT Height 177.8 cm (5' 10 ) 06/20/2024 8:49 PM EDT Body Mass Index 24.39 06/20/2024 8:49 PM EDT Plan of Treatment Health Maintenance Due Date Last Done Comments Dental Cleaning/Exam 1987 Hepatitis C Screening 1987 Polio Immunization (4 of 4 - 4-dose series) 1991 04/27/1989, 10/04/1988, 1987 Tetanus Diphtheria and Pertussis Immunization (5 - Tdap) 1998 02/18/1989, 02/19/1988, 1987, Additional history exists HPV Immunization (1 - Male 3-dose series) 2002 Annual Preventive Exam 2005 Hep B Infection Screening - Triple Screen 2005 Hepatitis B Immunization (1 of 3 - 19+ 3-dose series) 2006 Covid-19 Immunization ( - season) 2024 Influenza Immunization (#1) 2025 HIV Screening Completed 10/01/2018 HIB Immunization Aged Out No longer e ligible based on patient's age to complete this topic Hepatitis A Immunization Aged Out No longer eligible based on patient's age to complete this topic Pneumococcal: Ped (0 to 5 Yrs) and At-Risk Member (6 to 64 Yrs) Aged Out No longer eligible based on patient's age to complete this topic Varicella Immunization Aged Out No lo nger eligible based on patient's age to complete this topic Insurance [facility] 5 Care Teams Information Security Architect Relationship Specialty Start Date End Date Provider, [place] [address] PCP - General Corporate Attorney 03/05/21
--- OUTSIDE RECORDS SUMMARY | 2025-04-23 12:55 | XMS_ITS | Encounter Summary ---
Author Organization [facility] Address [address] [place] [address] Care Team Providers Care Sanitarian Name Role Phone ePtra Garza MD Primary Care Provider [phone] Reason for Visit * Reason Onset Date Comments [facility] Same Day Appt/Overbook Request 04/23/2025 Tick bite Encounter Details Date Type Department Care Team (Late st Contact Info) Description 04/23/2025 Telephone [facility] [address] [place] [address] Petra Garza MD [address] [place] [address] [facility] Same Day Appt/Overbook Request (Tick bite) Social History Tobacco Use Types Packs/Day Years Used Date Smoking Tobacco: Former Cigarettes 1 10.7 0 08/30/2001 - 05/28/2012 Passive Smoke Exposure: Never Smokeless Tobacco: Never Alcohol Use Standard Drinks/Week Comments Not Currently [...] place to sleep or slept in a longterm (including now)? No 03/12/2024 PHQ-9 Answer Date [...] any time in the past 12 m [facility], were you homeless or living in a longterm (including now)? No 09/15/2024 Utilities Answer Date [...] on file documented as of this encounter Miscellaneous Notes * Telephone Encounter - Michelle Mcneil - 04/23/2025 12:35 PM EDT Same Day Appt/Overbook Request Reason for Call: Pt called to get appt today for tick bite-no appts avail, please call to work in Best contact number: [phone] Optimal time of day to reach caller: ANYTIME Additional comments/information from caller: None Note: Please do not reply to this message. Follow-up communication and further actions as a result of this message need to be communicated with the patient directly, if the patient is not active onMyChart. If the patient is active on MyChart, they will receive notification of the communication/outcome via [employer]. documented in this encounter Plan of Treatment Upcoming Encounters Date Type Department Care Team (Late st Contact Info) Description 08/27/2025 10:00 AM EST Office Visit [facility] [address] [place] [address] Petra Garza MD [address] [place] [address] documented as of this encounter Visit Diagnoses Not on filedocumented in this encounter Additional Health Concerns Assessment Noted Time PHQ-9 Depression Total Score: 0 09/20/19 25 11:01 AM EST A Body Mass Index follow-up plan has been documented for the patient 03/12/2025 9:25 AM EDT documented as of this encounter Care Teams Sanitarian Relationship Specialty Start Date End Date Petra Garza MD [address] [place] [address] PCP - General 01/10/21 documented as of this encounter
--- OUTSIDE RECORDS SUMMARY | 2025-04-23 12:55 | XMS_ITS | Clinical Summary ---
Author Organization [facility] Address [address] [place] [address] Care Team Providers Care Orthopedic Brace Maker Name Role Phone Pcp, Adrianna Primary Care Provider [phone] Source Comments This information has been disclosed to you from confidential records protectedfrom disclosure by state law. You shall make no further disclosure of thisinformation without the specific, written, and informed release of theindividual to whom it pertains, or as otherwise permitted by law. A generalauthorization for the release of medical or other information is not sufficientfor the purposes of therelease of HIV test results or diagnoses. [id number] [facility] Allergies Active Allergy Reactions Criticality Noted Date Comments Codeine High 09/13/2018 Penicillins Anaphylaxis High 11/02/2017 Patient states this is inaccuate, does not have allergy, previosly historical diagnosis - noted 09/13/17 Medications No known medications Active Problems Problem Noted Date Diagnosed Date Donor of kidney for transplant 09/21/2018 Overview (09/21/2018): Added automatically from request for surgery [id number] Kidney donor 09/13/2018 Family History Medical History Relation Comments Alcohol abuse Father Coronary artery disease Father Heart attack Father Relation Status Comments Brother Alive Daughter Alive Father Mother Alive Sister Alive Son Alive Social History Tobacco Use Types Packs/Day Years Used Date Smoking Tobacco: Former Cigarettes Q uit: 08/30/2011 Smokeless Tobacco: Never Tobacco Cessation:Counseling Given: No Alcohol Use Standard Drinks/Week Comments No 0 (1 standard drink = 0.6 oz pur e alcohol) Sex and Gender Information Value Date Recorded Sex Assigned at Not on file Legal Sex Male 4:15 PM EST Gender Identity Not on file Sexual Orientation Not on file Last Filed Vital Signs Vital Sign Reading Time Taken Comments Blood Pressure 122/84 10/11/2020 9:17 AM EST Pulse 68 10/11/2020 9:17 AM EST Temperature 37 C (98.6 F) 10/11/2020 9:17 AM EST Respiratory Rate 18 03/15/2019 7:00 AM EDT Oxygen Saturation 98% 03/15/2019 7:00 AM EDT Inhaled Oxygen Concentration 98% 03/15/2019 7 :00 AM EDT Weight 76.7 kg (169 lb) 10/11/2020 9:17 AM EST Height 180.3 cm (5' 11 ) 10/11/2020 9:17 AM EST Body Mass Index 23.57 10/11/2020 9:17 AM EST Plan of Treatment Not on file Insurance MEDICARE A AND B #[address] [place] [address] [facility] Member Subscriber Plan / Payer (Ef fective 2017-Present) Name:Barrett Cordon Relation to Subscriber:Self Name:Barrett Cordon Payer ID:[id number] Group ID:Not on file Type:[facility] Address: [address] [place] [address] MEDICARE A AND B Advance Directives For more information, please contact: [phone] * Full Code (Latest Code Status on File) Date Activated Date Inactivated Comments 10/03/2018 2:14 PM 10/05/2018 6:18 PM Care Teams Orthopedic Brace Maker Relationship Specialty Start Date End Date Pcp, No No Address PCP - General Pediatrics 10/19/18
--- OUTSIDE RECORDS SUMMARY | 2025-04-23 12:55 | XMS_ITS | Encounter Summary ---
Author Organization [facility] Address [address] [id number] Care Team Providers Care Supervisor Electronics Inspection Name Role Phone Petra Garza MD Primary Care Provider [phone] Encounter Details Date Type Department Care Team (Late st Contact Info) Description 03/12/2025 Refill [facility] [address] [place] [address] Petra Garza MD [address] [place] [address] Gastroesophageal reflux disease, unspecified whether esophagitis present; Allergic rhinitis, unspecified seasonality, unspecified trigger Social History Tobacco Use Types Packs/Day Years [...] place to sleep or slept in a long term (including now)? No 03/12/2024 PHQ-9 Answer Date [...] time in the past 12 m [facility], were you homeless or living in a long term (including now)? No 09/15/2024 Utilities Answer Date [...] on file documented as of this encounter Functional Status * Calculated C-SSRS [...] encounter Miscellaneous Notes * Telephone Encounter - Adriana Buckner PharmD - 03/12/2025 3:04 PM EDT Resent prescription(s) to requested pharmacy due to: Patient requested to switch pharmacies. Confirmed script(s) is cancelled at original pharmacy. . Resend of today's prescriptions. documented in this encounter Plan of Treatment Upcoming Encounters Date Type Department Care Team (Late st Contact Info) Description 08/27/2025 10:00 AM EST Office Visit [facility] [address] [place] [address] Petra Garza MD [address] [place] [address] documented as of this encounter Visit Diagnoses Diagnosis Gastroesophageal reflux disease, unspecified whether esophagitis present Allergic rhinitis, unspecified seasonality, unspecified trigger documented in this encounter Additional Health Concerns Assessment Noted Time PHQ-9 Depression Total Score: 0 09/20/19 25 11:01 AM EST A Body Mass Index follow-up plan has been documented for the patient 03/12/2025 9:25 AM EDT documented as of this encounter Care Teams Supervisor Electronics Inspection Relationship Specialty Start Date End Date Petra Garza MD [address] [place] [address] PCP - General 01/10/21 documented as of this encounter
--- OUTSIDE RECORDS SUMMARY | 2025-04-23 12:55 | XMS_ITS | Encounter Summary ---
Author Organization [facility] Address [address] [id number] Care Team Providers Care Mechanical Detailer Name Role Phone Petra Garza MD Primary Care Provider [phone] Encounter Details Date Type Department Care Team (Late st Contact Info) Description 03/12/2025 Results Follow-Up [facility] [address] [place] [address] Petra Garza MD [address] [place] [address] Social History Tobacco Use Types Packs/Day Years [...] place to sleep or slept in a intermediate (including now)? No 03/12/2024 PHQ-9 Answer Date [...] any time in the past 12 m [facility], were you homeless or living in a intermediate (including now)? No 09/15/2024 Utilities Answer Date [...] Ivana Christina documented as of this encounter Plan of Treatment Upcoming Encounters Date Type Department Care Team (Late st Contact Info) Description 08/27/2025 10:00 AM EST Office Visit [facility] [address] [place] [address] Petra Garza MD [address] [place] [address] documented as of this encounter Visit Diagnoses Not on filedocumented in this encounter Additional Health Concerns Assessment Noted Time PHQ-9 Depression Total Score: 0 09/20/19 25 11:01 AM EST A Body Mass Index follow-up plan has been documented for the patient 03/12/2025 9:25 AM EDT documented as of this encounter Care Teams Mechanical Detailer Relationship Specialty Start Date End Date Petra Garza MD [address] [place] [address] PCP - General 01/10/21 documented as of this encounter
--- OUTSIDE RECORDS SUMMARY | 2025-04-23 12:55 | XMS_ITS | Clinical Summary ---
Author Organization [facility] Address [address] [place] [address] Care Team Providers Care Hook Up Driver Name Role Phone Petra Garza MD Primary Care Provider [phone] Allergies Active Allergy Reactions Criticality Noted Date Comments Codeine Unknown - Patient states they do not know rxn details High 09/12/2009 Penicillins Anaphylaxis,Unknown - Patient states they do not know rxn details High 11/02/2017 Patient states this is inaccuate, does not have allergy, previosly historical diagnosis - noted 09/13/17 Patient states this is inaccuate, does not have allergy, previosly historical diagnosis - noted 09/13/17 Medications famotidine (Pepcid) 40 MG tabletIndication s:Gastroesophage al reflux disease, unspecified whether esophagitis present Take 1 tablet by mouth 2 times a day. 180 tablet 3 5 Active fluticasone (Flonase) 50 MCG/ACT nasal sprayIndications :Allergic rhinitis, unspecified seasonality, unspecified trigger Administer 2 sprays into each nostril daily. Shake gently. Before first use, prime pump. After use, clean tip and replace cap. 16 g 11 5 Active levocetirizine (Xyzal) 5 MG tabletIndication s:Allergic rhinitis, unspecified seasonality, unspecified trigger Take 1 tablet by mouth every evening. 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 Overview (03/17/2021): Added automatically from request for surgery [id number] Encounters Date Type Department Care Team Description 04/23/2025 Telephone [facility] [address] [place] [address] Petra Garza MD [facility] Same Day Appt/Overbook Request (Tick bite) 03/12/2025 9:00 AM EDT [facility] [address] [place] [address] Petra Garza MD Donor of kidney for transplant (Primary Dx); Gastroesophageal reflux disease, unspecified whether esophagitis present; Allergic rhinitis, unspecified seasonality, unspecified trigger; History of UTI; History of hematuria; Other male erectile dysfunction 03/12/2025 Refill [facility] [address] [place] [address] Petra Garza MD Gastroesophageal reflux disease, unspecified whether esophagitis present; Allergic rhinitis, unspecified seasonality, unspecified trigger 03/12/2025 Results Follow-Up [facility] [address] [place] [address] Petra Garza MD 03/12/2025 Travel 02/08/2025 Refill [facility] [address] [place] [address] Petra Garza MD Gastroesophageal reflux disease, unspecified whether esophagitis present from Last 3 Months Immunizations Immunization Administration Dates Next Due DTaP, Unspecified 02/18/1989,02/19/1988,12/17/18 88,1987 MMR 1987 Polio, Unspecified 04/27/1989,10/04/1988, 988 Family History Medical History Relation Name Comments Alcohol abuse Father Chase Cordon Kidney disease Maternal Grandmother Marlene moore Relation Name Status Comments Father Chase Cordon Maternal Grandmother Marlene moore Social History Tobacco Use Types Packs/Day Years [...] any time in the past 12 m [facility], were you homeless or living in a longterm (including now)? No 09/15/2024 Utilities Answer Date Recorded In the past 12 months has [employer], gas, oil, or water company threatened to [...] Mass Index 25.31 03/12/2025 9:07 AM EDT Plan of Treatment Upcoming Encounters Date Type Department Care Team (Late st Contact Info) Description 08/27/2025 10:00 AM EST Office Visit [facility] [address] [place] [address] Petra Garza MD [address] [place] [address] Health Maintenance Due Date Last Done Comments [facility]-Infant/Child/Adol SDOH Screenings 1987 [facility]Y-DTaP,Tdap,and Td Vaccines (5 - Tdap) 1998 02/18/1989, 02/19/1988, 1987, Additional history exists [facility]- SDOH Screenings 2005 [facility]Y-Adult SDOH Screenings 2005 [facility]Y-Hepatitis B Vaccines (1 of 3 - 19+ 3-dose series) 2006 HPV Vaccines (1 - 3-dose SCDM series) 2014 [id number] Vaccine (1 - 2023-25 season) 2024 [facility]Y-Influenza Vaccine (#1) 2025 [facility]Y-Depression Screening 09/20/2025 09/20/2024, 08/31 UKY-Zoster Vaccines (1 of 2) 2037 [facility]Y-IPV Vaccines Aged Out 04/27/1989, 12/1988, 1987 No longer eligible based on patient's age to complete this topic [facility]Y-Obesity Intervention Completed 025, 09/20/2024, 08/17/2024, Additional history exists [facility]Y-HIB Vaccines Aged Out No longer e ligible based on patient's age to complete this topic UKY-HIV Screening Discontinued [facility]-Hepatitis A Vaccines Aged Out No longer eligible based on patient's age to complete this topic [facility]Y-Hepatitis C Screening Discontinued UKY-Pneumococcal Vaccine: Pediatrics (0 to 5 Years) and At-Risk Patients (6 to 49 Years) Aged Out No longer eligible based on patient's age to complete this topic UKY-Rotavirus Vaccines Aged Out No lo nger eligible based on patient's age to complete this topic UKY-Varicella Vaccines Discontinued Procedures Procedure Name Priority Date/Time Associated Diagnosis Comments TESTOSTERONE, TOTAL Routine 03/12/2025 9 :26 AM EDT Other male erectile dysfunction URINALYSIS WITH REFLEX MICROSCOPIC Routine 03/12/2025 9:26 AM EDT Donor of kidney for transplant History of UTI History of hematuria BASIC METABOLIC PANEL, PLASMA Routine 03/12/2025 9:26 AM EDT Donor of kidney for transplant from Last 3 Months Results * Testosterone Total (03/12/2025 9:26 AM EDT) Testosterone Total 573.0 264.0 - 916.0 ng/dL 03/13/2025 2:[address] [facility] Blood Venous blood specimen / Unknown Venipuncture / Unknown 03/12/2025 9:26 AM EDT 03/12/2025 9:[address] [facility] - 03/13/2025 2:20 PM EDT Test performed by LC-MS/MS at the [facility]. This test was developed and its performance characteristics determined by [facility]. It has not been cleared or approved by the FDA. The laboratory is regulated under CLIA as qualified to perform high-complexity testing. This test is used for clinical purposes. us Petra Garza MD LAB BLOOD ORDERABLES Final Res ult [facility] [address] [place] [address] * Urinalysis with reflex microscopic (Culture NOT Included) (03/12/2025 9:26 AM EDT) Color, Urine Yellow LAB URINALYSIS - AUTOMATED METHOD 03/12/2025 1:[address] [facility] Clarity, Urine Clear LAB URINALYSIS - AUTOMATED METHOD 03/12/2025 1:[address] [facility] Spec [place], Urine 1.007 1.005 - 1.030 LAB URINALYSIS - AUTOMATED METHOD 03/12/2025 1:[address] [facility] pH, Urine 6.5 5.0 - 8.0 LAB URINALYSIS - AUTOMATED METHOD 03/12/2025 1:[address] [facility] Protein, Urine Negative Negative mg/dL LAB URINALYSIS - AUTOMATED METHOD 03/12/2025 1:[address] [facility] Glucose, Urine Negative Negative mg/dL LAB URINALYSIS - AUTOMATED METHOD 03/12/2025 1:[address] [facility] Ketones, Urine Negative Negative mg/dL LAB URINALYSIS - AUTOMATED METHOD 03/12/2025 1:[address] [facility] Blood, Urine Negative Negative LAB URINALYSIS - AUTOMATED METHOD 03/12/2025 1:[address] [facility] Bilirubin, Urine Negative Negative LAB URINALYSIS - AUTOMATED METHOD 03/12/2025 1:[address] [facility] Urobilinogen, Urine 0.2 0.2 to 1.0 mg/dL LAB URINALYSIS - AUTOMATED METHOD 03/12/2025 1:[address] [facility] Leukocytes, Urine Negative Negative LAB URINALYSIS - AUTOMATED METHOD 03/12/2025 1:[address] [facility] Nitrite, Urine Negative Negative LAB URINALYSIS - AUTOMATED METHOD 03/12/2025 1:[address] [facility] Urine Urine specimen obtained by clean catch procedure / Unknown Non-blood Collection / Unknown 03/12/2025 9:26 AM EDT 03/12/2025 9:29 AM EDT us Petra Garza MD LAB URINE ORDERABLES Final Res ult [facility] [address] [place] [address] * (ABNORMAL) Basic Metabolic Panel, Plasma (03/12/2025 9:26 AM EDT) Glucose, Plasma 87 74 - 99 mg/dL 03/12/2025 1:[address] [facility] BUN, Plasma 12 7 - 21 mg/dL 03/12/2025 1:[address] [facility] Creatinine, Plasma 1.46(H) 0.70 - 1.20 mg/dL 03/12/2025 1:[address] [facility] BUN/Creatinine Ratio 8 03/12/2025 1:[address] [facility] Sodium, Plasma 138 136 - 145 mmol/L 03/12/2025 1:[address] [facility] Potassium, Plasma 4.2 3.6 - 4.9 mmol/L 03/12/2025 1:[address] [facility] Chloride, Plasma 101 97 - 107 mmol/L 03/12/2025 1:[address] [facility] CO2, Plasma 26 22 - 29 mmol/L 03/12/2025 1:[address] [facility] Anion Gap 11 6 - 16 mmol/L 03/12/2025 1:[address] [facility] Total Calcium, Plasma 9.6 8.9 - 10.2 mg/dL 03/12/2025 1:[address] [facility] eGFRcr 63.1 mL/min/1.7 3m*2 03/12/2025 1:[address] [facility] Comment:Reported eGFRcr in m L/min/1.73m2 is based the CKD-EPI 2020 equation that does not use a race coefficient. Blood Venous blood specimen / Unknown Venipuncture / Unknown 03/12/2025 9:26 AM EDT 03/12/2025 9:29 AM EDT us Petra Garza MD LAB BLOOD ORDERABLES Final Res ult [facility] [address] [place] [address] from Last 3 Months Insurance [facility] Care Teams Hook Up Driver Relationship Specialty Start Date End Date Petra Garza MD [address] [place] [address] PCP - General 01/10/21
--- OUTSIDE RECORDS SUMMARY | 2025-04-23 12:55 | XMS_ITS | Clinical Summary ---
Author Organization [facility] Address [address] [place] [address] Phone Care Team Providers Care Vacuum Conditioner Operator Name Role Phone eMrrill Adams MD, [facility] Primary Care Provid er Allergies Active Allergy Reactions Criticality Noted Date Comments Codeine 09/12/2009 Medications cyclobenzaprine (FLEXERIL) 10 mg tablet Take 1 Tab by mouth 3 times daily as needed for Muscle spasms. 21 Tab 0 05/24/2010 Active Active Problems No known active problems Social History Tobacco Use Types Packs/Day Years Used Date Smoking Tobacco: Every Day Alcohol Use Standard Drinks/Week Comments No 0 (1 standard drink = 0.6 oz pur e alcohol) Sex and Gender Information Value Date Recorded Sex Assigned at Not on file Legal Sex Male 5:45 AM EDT Gender Identity Not on file Sexual Orientation Not on file Obstetrics History Last Filed Vital Signs Vital Sign Reading Time Taken Comments Blood Pressure 121/72 05/24/2010 7:26 PM EDT Pulse 68 05/24/2010 7:26 PM EDT Temperature 36.4 C (97.6 F) 05/24/2010 7:26 PM EDT Respiratory Rate 16 05/24/2010 7:26 PM EDT Oxygen Saturation 100% 05/24/2010 7:26 PM EDT Inhaled Oxygen Concentration - - Weight - - Height - - Body Mass Index - - Plan of Treatment Health Maintenance Due Date Last Done Comments Annual Wellness Exam 1990 DTaP/TDaP/Td (1 - Tdap) 2006 Hepatitis B Vaccine (1 of 3 - 19+ 3-dose series) 2006 COVID-19 Vaccine ( - 2023-2 5 season) 2024 Influenza Vaccine (#1) 2025 Meningococcal B Vaccine Aged Out No l onger eligible based on patient's age to complete this topic Pneumococcal Vaccine 0-49 Aged Out No longer eligible based on patient's age to complete this topic Care Teams Vacuum Conditioner Operator Relationship Specialty Start Date End Date Ricardo Momin Sr., MD [address] [place] [id number] PCP - General 05/24/10
--- OUTSIDE RECORDS SUMMARY | 2025-04-23 12:55 | XMS_ITS | Encounter Summary ---
Author Organization [facility] Address [address] [id number] Care Team Providers Care Knot Picker Cloth Name Role Phone Petra Garza MD Primary Care Provider [phone] Encounter Details Date Type Department Care Team (Latest Contact Info) Description 03/12/2025 Travel Social History Tobacco Use Types Packs/Day Years [...] place to sleep or slept in a snf (including now)? No 03/12/2024 PHQ-9 Answer Date [...] any time in the past [address] [facility], were you homeless or living in a snf (including now)? No 09/15/2024 Utilities Answer Date [...] Ivana Christina 6. Suicidal Behavior (Lifetime) No 5 9:10 AM EDT Ivana Christina documented as of this encounter Plan of Treatment Upcoming Encounters Date Type Department Care Team (Late st Contact Info) Description 08/27/2025 10:00 AM EST Office Visit [facility] [address] [place] [address] Petra Garza MD [address] [place] [address] documented as of this encounter Visit Diagnoses Not on filedocumented in this encounter Additional Health Concerns Assessment Noted Time PHQ-9 Depression Total Score: 0 09/20/19 25 11:01 AM EST A Body Mass Index follow-up plan has been documented for the patient 03/12/2025 9:25 AM EDT documented as of this encounter Care Teams Knot Picker Cloth Relationship Specialty Start Date End Date Petra Garza MD [address] [place] [address] PCP - General 01/10/21 documented as of this encounter
[2025-04-24 16:12] LABS: Lyme Ab CIA Negative (Negative)
== END 2025-04-22 23:59 | disposition home or self-care (01) ==
LOC: LAB.DROPOF 04-23 12:51
PROVIDERS: PCP Student in an Organized Health Care Education/Training Program; Visit Provider Student in an Organized Health Care Education/Training Program
DX: S30.861A Insect bite (nonvenomous) of abdominal wall, initial encounter (principal); W57.XXXA Bitten or stung by nonvenomous insect and other nonvenomous arthropods, initial encounter
CPT/HCPCS: 86618

== ENCOUNTER 2025-06-25 11:11 | Outpatient (CLI) | payer BC, SELFPAY ==
--- OUTSIDE RECORDS SUMMARY | 2025-06-25 11:26 | XMS_ITS | Clinical Summary ---
Author Organization [facility] Address [address] [place] [address] Care Team Providers Care Gandy Dancer Name Role Phone Petra Garza MD Primary Care Provider [phone] Allergies Active Allergy Reactions Criticality Noted Date [...] every evening. 90 tablet 2 5 Active doxycycline (Vibra-Tabs) 100 MG tablet Take 1 tablet by mouth. 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/13/2018 Overview (03/17/2021): Added automatically from request for surgery [id number] Encounters Date Type Department Care Team Description 04/25/2025 Telephone [facility] [address] [place] [address] Petra Garza MD [facility] Clinical Concern/Question 04/24/2025 11:00 AM EDT Office Visit [facility] [address] [place] [address] Dalia Loyola, [employer] DEM[employer]ATOR, DNP Tick bite of male external genital organ, unspecified organ, subsequent encounter (Primary Dx); Dermatitis 04/24/2025 Travel 04/23/2025 Telephone [facility] [address] [place] [address] Petra Garza MD [facility] Same Day Appt/Overbook Request (Tick bite) from Last 3 Months Immunizations Immunization Administration [...] 0 08/30/2001 - 05/28/2012 Passive Smoke Exposure: Past Smokeless Tobacco: Never Tobacco Cessation:Counseling Given: Not Answered Alcohol Use Standard Drinks/Week Comments Not Currently 0 (1 standard drink = 0.6 oz pur e alcohol) PHQ-2 Answer Date Recorded Patient Health Questionnaire-2 Score 0 09/20/2024 PHQ-9 Answer Date Recorded Patient Health Questionnaire-9 Score 0 09/20/2024 Humiliation, Afraid, Rape, and Kick questionnair e Answer Date Recorded Within the last year, have y ou been afraid of your partner or ex-partner? No 04/24/2025 Within the last year, have y ou been humiliated or emotionally abused in other ways by your partner or ex-partner? No Within the last year, have y ou been kicked, hit, slapped, or otherwise physically hurt by your partner or ex-partner? No 04/24/2025 Within the last year, have y ou been raped or forced to have any kind of sexual activity by your partner or ex-partner? No 04/24/2025 Hunger Vital Sign Answer Date Recorded Within the past 12 months, y ou worried that your food would run out before you got the money to buy more. Never true 04/24/20 25 Within the past 12 months, t he food you bought just didn't last and you didn't have money to get more. Never true 04/24/2025 PRAPARE - Transportation Answer Date Re corded In the past 12 months, has l ack of transportation kept you from medical appointments or from getting medications? No 03/31 In the past 12 months, has l ack of transportation kept you from meetings, work, or from getting things needed for daily living? No 04/24/2025 Housing Stability Vital Sign Answer Jacky e Recorded In the last 12 months, was t here a time when you were not able to pay the mortgage or rent on time? No 04/24/2025 In the past 12 months, how m any times have you moved where you were living? 0 04/24/2025 At any time in the past 12 m [facility], were you homeless or living in a residential (including now)? No 04/24/2025 Utilities Answer Date Recorded In the past 12 months has th e electric, gas, oil, or water company threatened to shut off services in your home? No 04/24/2025 PHQ-2A Answer Date Recorded Patient Health Questionnaire-2 Score 0 03/15/2023 Sex and Gender Information Value Date Recorded Sex Assigned at Not on file Legal Sex Male 6:14 PM EDT Gender Identity Not on file Sexual Orientation Not on file Last Filed Vital Signs Vital Sign Reading Time Taken Comments Blood Pressure 120/72 04/24/2025 11:10 AM EDT Pulse 72 04/24/2025 11:10 AM EDT Temperature 36.8 C (98.2 F) 04/24/2025 11:10 AM EDT Respiratory Rate 18 04/24/2025 11:10 AM EDT Oxygen Saturation 99% 04/24/2025 11:10 AM EDT Inhaled Oxygen Concentration - - Weight 80.5 kg (177 lb 7.5 oz) 04/24/2025 11:10 AM EDT Height 177.8 cm (5' 10 ) 04/24/2025 11:10 AM EDT Body Mass Index 25.46 04/24/2025 11:10 AM EDT Plan of Treatment Upcoming Encounters Date Type Department Care Team (Late st Contact Info) Description 08/27/2025 10:00 AM EST Office Visit [facility] [address] [place] [address] Petra Garza MD [address] [place] [address] Health Maintenance Due Date Last Done Comments [facility]-Infant/Child/Adol SDOH Screenings 1987 [facility]Y-DTaP,Tdap,and Td Vaccines (5 - Tdap) 1998 02/18/1989, 02/19/1988, 1987, Additional history exists [facility]Y-Hepatitis B Vaccines (1 of 3 - 19+ 3-dose series) 2006 HPV Vaccines (1 - 3-dose SCDM series) 2014 [id number] Vaccine (1 - season) 2025 UKY-Influenza Vaccine (#1) 2025 UKY-Depression Screening 09/20/2025 09/20/2024, 08/31 UKY- SDOH Screenings 10/25/2025 UKY-Adult SDOH Screenings 10/25/2025 04/24/2025 UKY-Zoster Vaccines (1 of 2) 2037 UKY-IPV Vaccines Aged Out 04/27/1989, 12/1988, 1987 No longer eligible based on patient's age to complete this topic UKY-Obesity Intervention Completed 025, 03/12/2025, 09/20/2024, Additional history exists UKY-HIB Vaccines Aged Out [...] to complete this topic [facility]-Varicella Vaccines Discontinued Insurance [facility] Care Teams Gandy Dancer Relationship Specialty Start Date End Date Petra Garza MD [address] [place] [address] PCP - General 01/10/21
--- OUTSIDE RECORDS SUMMARY | 2025-06-25 11:26 | XMS_ITS | Data Portability ---
Author Organization [facility] Address [address] [place] [address] Assessment Encounter Date Assessment Date Assessment LastModified by Organization Details LastModified Time 08/19/2018 08/19/2018 SURGERY DATE: 08/19/2018 PREOPERATIVE DIAGNOSIS: Desire sterilization. POSTOPERATIVE DIAGNOSIS: Desire sterilization. PROCEDURE: Bilateral vasectomy. ANESTHESIA: Local. COMPLICATIONS: None. CONDITION: Stable. SURGEON: Chetan Arriola MD INDICATIONS: This is a 33-year-old white male who desires sterilization. Risks and complications have been discussed in the office. OPERATIVE NOTE: The patient was taken to the operating room after informed consent was obtained. He was placed on the operating room table in the supine position and he was prepped and draped in the standard surgical fashion. The testicles were examined and they were within normal limits, no evidence of abnormalities. The left vas was grasped and brought to the midline raphe, 30 mL of local anesthetic were placed into and around the midline raphe in the left vas. Scalpel was used to make 1 midline incision. The vas was grasped with a tenaculum and brought through the incision. The vasal sheath was then incised sharply and the vas deferens proper dissected from the underlying soft tissue and vessels for a length of 3 cm. The vas was doubly clipped with medium clips on each side and a 1 cm segment excised. The cautery was used to cauterize any bleeding points. The vas was dropped back into the left hemiscrotum and the right vas was brought up to the midline raphe and local anesthetic was infiltrated around the right vas using the same incision. Approximately 8 mL were used. The vas was grasped with a tenaculum and the vasal sheath incised and the vas proper dissected bluntly and sharply away from the underlying soft tissue and blood vessels. This vas was doubly clipped on each side as well. A 1 cm segment was excised and the ends cauterized. Any bleeding vessels were cauterized. This vas was dropped back into the hemiscrotum and a 2-0 Chromic was used to close the skin in a horizontal mattress fashion. Neosporin was placed on to the incision site. Two gauze pads were placed and a jock strap applied. The patient tolerated the procedure well and there were no complications, discharged to the recovery room in stable condition. He will be discharged with Keflex and Lortab. Discharge instructions were discussed with the patient postoperatively and he was given written instructions. He is to refrain from any strenuous activity, sexual intercourse for 7 days. He is to bring back his sperm samples as instructed and refrain from unprotected intercourse until then. [email or web address] Not available 08/19/2018 18:16:08 Plan of Treatment Reminders Order Date Submit Date Provider Last Modified By Organization Details Last Modified Time Details Appointments None record ed. Lab None record ed. Referral None record ed. Procedures None record ed. Surgeries None record ed. Imaging None record ed. Medication Orders None record ed. Patient TargetsNo targets recorded. Patient Instructions Encounter Date Encounter Id Patient Instructions Last Modified By Organization Details Last Modified Time 08/01/2018 [id number] I have discussed vasectomy in great detail with him today. I emphasized the intended permanence of the procedure leading to permanent sterilization. We discussed the potential failure rate and it was made clear that it would be required to determine that 2 consecutive semen specimens examined in this office showing no evidence of spermatozoa before the procedure be declared successful and the patient can safely proceed with unprotected intercourse. We did discuss all potential risks and complications inherent with scrotal surgery and with this procedure. Specific instructions were given regarding post operative care and activity. Written materials were given him to as well including extensive discussion of this procedure as well including a detailed description of the previous historical studies suggesting a potential elevated risk of prostate cancer with this procedure. He stated that he had full understanding of all that was discussed and he desires to proceed. [email or web address] Not available 08/03/2018 12:55:17 Reason for Referral None Reported. Procedures Surgical History Date Name Laterality Status Provider Name and Address Organization Details Recorded Time 8 Vasectomy completed Yolanda Garcia [facility] 08/29/2018 09:19:54 Hernia Repair completed Keila Galaviz [facility] 08/01/2018 09:12:35 Imaging Results None recorded. Procedure Notes None recorded. Medical Equipment None Reported. Allergies Allergen ID Allergen Name Allergen Category Reaction Reaction Severity Criticality Documentation Date Start Date Code Code System Note Provider Name and Address Organization Details Recorded Time 414163 Product containin g penicilli n (product) medicatio n Not available Not available Not available 08/01/2018 95507 8001 SNOMED Keila Galaviz [facility] 8 09:09:51 Medications Name Sig Start Date Stop Date Status Note LastModified by Organization Details LastModified Time Bactrim DS 800 mg-160 mg tablet Take 1 tablet every 12 hours by oral route. 018 active Not Available Not Available Not Avai lable Vitals Date Recorded Systolic And Diastolic Provider Name and Address Organization Details Last Updated DateTime 08/29/2018 130/98 mm[Hg] Yolanda Carreran [facility] 08/29/2018 09:18:48 Social History Question Answer Notes LastModified by Organizat ion Details LastModified Time Tobacco Smoking Status Former Smoker Keila Galaviz [facility] 08/01/2018 09:10:37 Marital Status Informatio n not available 08/01/2018 What Was The Date Of Your Most Recent Tobacco Screening? 08/29/2018 Information n ot available 10/17/2019 Sex: Unknown Functional Status Question Answer Note LastModified by Organization D etails LastModified Time What is your level of alcohol consumption? None Information not available 08/01/2018 What is your occupation? [employer] Information not available 08/01/2018 Mental Status None recorded. Family History Relationship Description Onset Age of this Age Resolved Age Notes LastModified by Organization Details LastModified Time Father No current problems or disability stuminski Not available 08/01 09:10:12 Mother No current problems or disability stuminski Not available 08/01 09:10:12 Medical History Condition Response Allergies/Hayfever Y Asthma Y Past Encounters Encounter ID Performer Location Encounter Start Date Encounter Closed Date Diagnosis/Indication Diagnosis SNOMED-CT Code Diagnosis ICD10 Code Diagnosis IMO Codes Diagnosis Note [id number] CHETAN ARRIOLA MD [facility] [address] ,[address] [place] [address] 08/01/2018 08:52:10 08/03/2018 13:56:05 Counseling for sterilization done 1029392594 9103 Z30.09 Pt wishes to proceed with local vas [id number] CHETAN ARRIOLA MD SURGERY SCHEDULE [address] [place] [address] 08/19/2018 14:53:13 08/19/2018 14:57:43 [id number] CHETAN ARRIOLA MD [address] [facility] [place] [place] [address] 08/29/2018 09:11:09 08/29/2018 10:53:14 Wound seroma 984605621 T88.8XXA pt with drainage from surgical site. Incision is healing well and no underlying mass or tenderness . No signs of infection. Pt with very large scrotal sac and I believe fluid is mobilizing out the incision site. Pt reassured and to continue scrotal support and elevation. Health Concerns Section Related Observation LastModified by Organization Detai ls LastModified Time None Recorded Concern Status LastModified by Organization Details LastModified Time None Recorded Advance Directives Directive None Recorded Payers Insurance Date Sequence Insurance Name Policy Number Policy Young Covered Member ID Young Member ID Guarantor Name 08/29/2018 1 [place]: [place] [id number] Barrett Cordon [id number] Barrett Cordon 11/07/2018 PAYMENT PLAN Barrett Cordon Notes Date Note Type Note Provider Name and Address Organization Details Recorded Time 08/01/2018 text/html 32 yo male here today for Vasectomy Consult. He is with 5 children. He and his desire permanent sterilization. He states he has a h/o L varicocele but it does not bother him. CHETAN ARRIOLA MD [address] [place] [address], [address], [facility] 08/03/2018 12:55:40 08/29/2018 text/html 33 yo male returns 1 wk p/o vasectomy due to possible infection at incision site. He states that he was having swelling and tenderness last week in his scrotum. He spoke with Dr. De Oliveira on Wednesday who placed in on Bactrim due to drainage and irritation at his incision site. He denies recent fever or chills. He does feel a small lump/nodule under his incision and is unsure if it is normal. He denies recent scrotal pain more irritation and itching in the area. CHETAN ARRIOLA MD [facility] [place], [address], [facility] 08/29/2018 10:26:57
--- OUTSIDE RECORDS SUMMARY | 2025-06-25 11:26 | XMS_ITS | Encounter Summary ---
Author Organization [facility] Address [address] [id number] Care Team Providers Care Telesales Team Leader Name Role Phone Petra Garza MD Primary Care Provider [phone] Encounter Details Date Type Department Care Team (Late st Contact Info) Description 03/12/2025 Results Follow-Up [facility] [address] [place] [address] Petra Garza MD [address] [place] [address] Social History Tobacco Use Types [...] in the past 12 m [facility], were you homeless or living in a snf (including now)? No 04/24/2025 Utilities Answer Date [...] Date of Assessment Author No Risk Indicated 04/24/2025 11:13 AM EDT Sandra Bruton * Question Answer Date of Assessment Author 1. Wish to be (Past 1 Month) No 025 11:13 AM EDT Sandra Garcia 2. Non-Specific Active Suici joaquín Thoughts (Past 1 Month) No 04/24/2025 11:13 AM EDT Shantanu Garcia 6. Suicidal Behavior (Lifetime) No 08/26/202 5 11:13 AM EDT Sandra Garcia documented as of this encounter Plan of Treatment Upcoming Encounters Date Type Department Care Team (Late st Contact Info) Description 08/27/2025 10:00 AM EST Office Visit [facility] [address] [place] [address] Petra Garza MD [address] [place] [address] documented as of this encounter Visit Diagnoses Not on filedocumented in this encounter Additional Health Concerns Assessment Noted Time PHQ-9 Depression Total Score: 0 09/20/19 25 11:01 AM EST A Body Mass Index follow-up plan has been documented for the patient 03/12/2025 9:25 AM EDT documented as of this encounter Care Teams Telesales Team Leader Relationship Specialty Start Date End Date Petra Garza MD [address] [place] [address] PCP - General 01/10/21 documented as of this encounter
--- OUTSIDE RECORDS SUMMARY | 2025-06-25 11:28 | XMS_ITS | Clinical Summary ---
Author Organization [facility] Address [address] [place] [address] Phone [email or web address] Care Team Providers Care Building Construction Estimator Name Role Phone Provider, No Primary Care [...] series) 2006 Covid-19 Immunization ( - season) 2025 Influenza Immunization (#1) 2025 HIV Screening Completed 10/01/2018 HIB Immunization Aged Out No longer e ligible based on patient's age to complete this topic Hepatitis A Immunization Aged Out No longer eligible based on patient's age to complete this topic Pneumococcal Immunization Aged Out No longer eligible based on patient's age to complete this topic Varicella Immunization Aged Out No lo nger eligible based on patient's age to complete this topic Insurance [facility] 5 Care Teams Building Construction Estimator Relationship Specialty Start Date End Date Provider, [place] [address] PCP - General Meal Packer 03/05/21
--- OUTSIDE RECORDS SUMMARY | 2025-06-25 11:28 | XMS_ITS | Encounter Summary ---
Author Organization [facility] Address [address] [place] [address] Care Team Providers Care Welder Oxyhydrogen Name Role Phone Petra Garza MD Primary Care Provider [phone] Reason for Visit * Reason Onset Date Comments HCN Clinical Concern/Question 04/25/2025 Encounter Details Date Type Department Care Team (Late st Contact Info) Description 04/25/2025 Telephone [facility] [address] [place] [address] Petra Garza MD [address] [place] [address] HCN Clinical Concern/Question Social History Tobacco Use Types Packs/Day Years Used Date Smoking Tobacco: Former Cigarettes 1 10.7 0 08/30/2001 - 05/28/2012 Passive Smoke Exposure: Past Smokeless Tobacco: Never Alcohol Use Standard Drinks/Week [...] any time in the past 12 m [facility], were you homeless or living in a intermediate (including now)? No 04/24/2025 Utilities Answer Date [...] encounter Miscellaneous Notes * Telephone Encounter - Ivana Christina - 05/07/2025 2:33 PM EDT Michelle ignore previous message, Dalia is filling out forms. * Telephone Encounter - Mainor-Pia Lopez - 04/26/2025 10:01 AM EDT Called and informed pt that FMLA paper work has not been received. Gave another fax number to pt. Pt voiced understanding. * Telephone Encounter - Mamie Knott - 04/25/2025 3:35 PM EDT Clinical Concern/Question Reason for Call: Pt calling to advise Matthew Martinez was to be faxing FMLA paperwork to the office today for him. Asking if received. Please call with updated status Best contact number: [phone] (mobile) Optimal time of day to reach caller: ANYTIME Additional comments/information from caller: None Note: Please do not reply to this message. Follow-up communication and further actions as a result of this message need to be communicated with the patient directly, if the patient is not active onMyChart. If the patient is active on MyChart, they will receive notification of the communication/outcome via [employer]. documented in this encounter Plan of Treatment Upcoming Encounters Date Type Department Care Team (Late Contact Info) Description 08/27/2025 10:00 AM EST Office Visit [facility] [address] [place] [address] Petra Garza MD [address] [place] [address] documented as of this encounter Visit Diagnoses Not on filedocumented in this encounter Additional Health Concerns Assessment Noted Time PHQ-9 Depression Total Score: 0 09/20/19 11:01 AM EST A Body Mass Index follow-up plan has been documented for the patient 04/24/2025 11:28 AM EDT documented as of this encounter Care Teams Welder Oxyhydrogen Relationship Specialty Start Date End Date Petra Garza MD [address] [place] [address] PCP - General 01/10/21 documented as of this encounter
--- OUTSIDE RECORDS SUMMARY | 2025-06-25 11:28 | XMS_ITS | Clinical Summary ---
Author Organization [facility] Address [address] [place] [address] Phone Care Team Providers Care Traffic Engineer Name Role Phone Merrill Adams MD, [facility] Primary Care Provid er Allergies [...] 3-dose series) 2006 COVID-19 Vaccine ( - 2024-2 6 season) 2025 Influenza Vaccine (#1) 2025 Meningococcal B Vaccine Aged Out No l onger eligible based on patient's age to complete this topic Pneumococcal Vaccine 0-49 Aged Out No longer eligible based on patient's age to complete this topic Care Teams Traffic Engineer Relationship Specialty Start Date End Date Ricadro Momin Sr., MD [address] [place] [phone] PCP - General 05/24/10
--- OUTSIDE RECORDS SUMMARY | 2025-06-25 11:28 | XMS_ITS | Encounter Summary ---
Author Organization [facility] Address [address] [id number] Care Team Providers Care Cooling System Operator Name Role Phone Petra Garza MD Primary Care Provider [phone] Reason for Visit * Reason Onset Date Comments HCN Same Day Appt/Overbook Request 04/23/2025 Tick bite Encounter Details Date Type Department Care Team (Late st Contact Info) Description 04/23/2025 Telephone [facility] [address] [place] [address] Petra Garza MD [address] [place] [address] HCN Same Day Appt/Overbook Request [...] any time in the past 12 m [facility], were you homeless or living in a fci (including now)? No 04/24/2025 Utilities Answer Date [...] Risk Indicated 04/24/2025 11:13 AM EDT Sandra Burton * Question Answer Date of Assessment Author 1. Wish to be (Past 1 Month) No 025 11:13 AM EDT Sandra Garcia 2. Non-Specific Active Suici joaquín Thoughts (Past 1 Month) No 04/24/2025 11:13 AM EDT Shantanu Garcai 6. Suicidal Behavior (Lifetime) No 11:13 AM EDT Sandra Garcia documented as of this encounter Miscellaneous Notes * Telephone Encounter - Blossom Plummer - 04/23/2025 1:30 PM EDT Appointment scheduled with Dalia for Wednesday * Telephone Encounter - Michelle Mcneil - 04/23/2025 12:35 PM EDT Same Day Appt/Overbook Request Reason for Call: Pt called to get appt today for tick bite-no appts avail, please call to work in Best contact number: [phone] Optimal time of day to reach caller: ANYTIME Additional comments/information from caller: None Note: Please do not reply to this message. Follow-up communication and further actions as a result of this message need to be communicated with the patient directly, if the patient is not active onMyChart. If the patient is active on MyChart, they will receive notification of the communication/outcome via [employer]. documented in this encounter Plan of Treatment Upcoming Encounters Date Type Department Care Team (Late Contact Info) Description 08/27/2025 10:00 AM EST Office Visit [facility] [address] [place] [address] Petra Garza MD [address] [place] [address] documented as of this encounter Visit Diagnoses Not on filedocumented in this encounter Additional Health Concerns Assessment Noted Time PHQ-9 Depression Total Score: 0 09/20/19 11:01 AM EST A Body Mass Index follow-up plan has been documented for the patient 03/12/2025 9:25 AM EDT documented as of this encounter Care Teams Cooling System Operator Relationship Specialty Start Date End Date Petra Garza MD [address] [place] [address] PCP - General 01/10/21 documented as of this encounter
--- OUTSIDE RECORDS SUMMARY | 2025-06-25 11:28 | XMS_ITS | Clinical Summary ---
Author Organization [facility] Phone Care Team Providers Care Bottom Brusher Name Role Phone Unavailable Unavailable Conditions or Problems No information available. Medications No information available. Medications Administered No information available. Allergies, Adverse Reactions, Alerts No information available. Results No information available. Plan of Care No information available. Procedures No information available. Vital Signs No information available. Immunizations No information available. Advance Directives No information available.
[2025-06-25 12:51] LABS: Blood Urea Nitrogen 14 mg/dl (9-20); Creatinine,Serum 1.30 mg/dl (0.66-1.25); Estimated Glomerular Filt Rate 62 ml/min (>60); GFR (African American) 75 ML/MIN (>60)
[2025-06-26 08:14] LABS: Testosterone,Total 712 ng/dL (264-916)
== END 2025-06-25 23:59 | disposition home or self-care (01) ==
LOC: LAB 11:12
PROVIDERS: PCP Family Medicine; Visit Provider Urology
DX: N52.9 Male erectile dysfunction, unspecified (principal); R53.83 Other fatigue
CPT/HCPCS: 36415; 82565; 84270; 84403; 84520